=== PATIENT | female | born 1995 | race Caucasian/White ===

== ENCOUNTER 2017-11-09 10:02 | Emergency (ER) | payer SELFPAY ==
[~2017-11-09] VITALS: Ht 170.2 cm; Wt 66.0 kg
[~2017-11-09 10:02] MED LIST: FERR324T4 PO; IBUP600 PO; OXYC1SOL5 PO; PERI8.6T PO
[2017-11-09 10:23] VITALS: BP 120/68; PULSE 111; RESP 20; TEMP 99.6; O2SAT 99
[2017-11-09 10:50] LABS: BACTERIA, URINE RARE /hpf; BILIRUBIN, URINE NEG (NEG); BLOOD, URINE NEG (NEG); GLUCOSE,URINE NEG (NEG); KETONE, URINE NEG (NEG); MUCUS URINE FEW /lpf (OCC); NITRITE,URINE NEG (NEG); SQUAMOUS EPITHELIAL CELL URINE 23 /hpf (0-5); URINE COLOR LIGHT-YELLOW (YELLW/STRAW); URINE LEUKOCYTE ESTERASE LARGE (NEG)
--- NOTE | 2017-11-09 11:13 | PD ---
HPI Chief Complaint: GI Complaint Time Seen by Provider: 10:57 Travel History International Travel<30 days: No Contact w/Intl Traveler<30days: No Traveled to known affect area: No History of Present Illness HPI The patient was seen and examined in the presence of the nurse. This patient complains of pelvic cramping. Is intermittent and started last night. She had an episode of nausea and vomiting as well. She is 6 weeks using last menstrual dates. She took a home test that was positive. No fever or vaginal discharge. No bleeding. Symptom severity is moderate. No alleviating factors. Duration one day PFSH Past Medical History Medical History: Denies Significant Hx Tetanus Vaccination: < 5 Years ?: LMP: 09/18/17 : 2 Para: 1 Past Surgical History Section: Yes Social History Alcohol Use: No Tobacco Use: No Allergies-Medications (Allergen,Severity, Reaction): Coded Allergies: No Known Allergies (Unverified Adverse Reaction, Unknown, 11/09/17) Reported Meds & Prescriptions Reported Meds & Active Scripts Active Phenergan (Promethazine HCl) 25 Mg Tablet 25 Mg PO Q6H PRN Review of Systems General / Constitutional: No: Fever Eyes: No: Visual changes HENT: No: Headaches Cardiovascular: No: Chest Pain or Discomfort Respiratory: No: Shortness of Breath Gastrointestinal: Positive: Nausea, Vomiting, Abdominal Pain Genitourinary: Positive: Pelvic Pain, No: Dysuria Musculoskeletal: No: Pain Skin: No Rash Neurologic: No: Weakness Psychiatric: No: Depression Endocrine: No: Polydipsia Hematologic/Lymphatic: No: Easy Bruising Physical Exam Narrative GENERAL: Well-nourished, well-developed patient in no apparent distress. SKIN: Focused skin assessment reveals no rash and nodules. Skin is Warm and dry. HEAD: Atraumatic. Normocephalic. EYES: Pupils equal and round. No scleral icterus. No injection or drainage. ENT: No nasal bleeding or discharge. Mucous membranes pink and moist. NECK: Trachea midline. No JVD. CARDIOVASCULAR: Regular rate and rhythm. No murmur appreciated. RESPIRATORY: No accessory muscle use. Clear to auscultation. Breath sounds equal bilaterally. GASTROINTESTINAL: Abdomen soft, lower quadrant tenderness without rebound or guarding, nondistended. Hepatic and splenic margins not palpable. MUSCULOSKELETAL: No obvious deformities. No clubbing. No cyanosis. No edema. NEUROLOGICAL: Awake and alert. No obvious cranial nerve deficits. Motor grossly within normal limits. Normal speech. PSYCHIATRIC: Appropriate mood and affect; insight and judgment normal. Pelvic: Mild bilateral Data Data Last Documented VS Vital Signs Date Time Temp Pulse Resp B/P (MAP) Pulse Ox O2 Delivery O2 Flow Rate FiO2 11/09/17 10:23 99.6 111 20 120/68 (85) 99 Orders Orders Urinalysis - C+S If Indicated (11/09/17 10:29) Ed Urine Pregnancytest Poc (11/09/17 10:29) Urine Culture (11/09/17 10:34) Promethazine Inj (Phenergan Inj) (11/09/17 11:15) Labs Laboratory Tests Test 11/09/17 10:34 Urine Color LIGHT-YELLOW Urine Turbidity HAZY Urine pH 8.0 Urine Specific [place] 1.019 Urine Protein TRACE mg/dL Urine Glucose (UA) NEG mg/dL Urine Ketones NEG mg/dL Urine Occult Blood NEG Urine Nitrite NEG Urine Bilirubin NEG Urine Urobilinogen LESS THAN 2.0 MG/DL Urine Leukocyte Esterase LARGE Urine RBC 1 /hpf Urine WBC 17 /hpf Urine Squamous Epithelial Cells 23 /hpf Urine Bacteria RARE /hpf Urine Mucus FEW /lpf Microscopic Urinalysis Comment CULTURE INDICATED MDM Medical Decision Making Medical Screen Exam Complete: Yes Emergency Medical Condition: Yes Medical Record Reviewed: Yes Differential Diagnosis Ectopic, PID, threatened Narrative Course I have reviewed the patient's electronic medical record. She had a here in 2016 Patient's abdomen is soft and benign I gave her dose of Zofran I did a bedside transabdominal ultrasound and I can identify an intrauterine fetus. Has a heart rate of 140 and regular Stable for outpatient follow-up. I gave her Phenergan injection and a prescription for same. She agrees to accept risk of the medication. We discussed the category C nature of the medication. I warned her about potential sedation. She will follow-up with her OB physician I have ruled out ectopic Diagnosis Primary Impression: Pelvic pain affecting in first trimester, antepartum Additional Impression: Nausea and vomiting during prior to 22 weeks gestation Additional Instructions: Follow-up with OB physician The patient was warned about potential sedation for the medications they will receive on prescription. Med/Other Pt SpecificInfo: Prescription(s) given Scripts Promethazine (Phenergan) 25 Mg Tablet 25 MG PO Q6H Y for NAUSEA OR VOMITING, #20 TAB 0 Refills Prov: Jef Denson MD 11/09/17 Disposition: 01 DISCHARGE HOME Condition: Stable Jef Denson MD November 09, 2017 11:13
[2017-11-09] MEDS ORDERED: PROMETHAZINE INJ 25 MG/ML VIAL IM ONE (11:15)
[2017-11-09] MEDS ORDERED: PROM25TA10 PO (12:03)
== END 2017-11-09 12:09 | disposition home or self-care (01) ==
LOC: NEPD 10:02
DX: O21.9 Vomiting of pregnancy, unspecified (principal); O26.891 Other specified pregnancy related conditions, first trimester; R10.2 Pelvic and perineal pain; Z3A.01 Less than 8 weeks gestation of pregnancy
CPT/HCPCS: 81001; 84703; 87086; 96372; 99283; J2550